=== PATIENT | male | born 1960 | race Caucasian/White ===

== ENCOUNTER → 2019-03-20 | Outpatient (CLI) | payer OTHER ==
[~2019-03-20] MED LIST: MULTCAP PO; MULTCHW14 PO; TADA5TAB PO
--- NOTE | 2019-03-20 13:54 | ECGEPIP ---
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
== END ==
LOC: M EKG 09:55
PROVIDERS: ATTEND Anesthesiology
DX: Z01.818 Encounter for other preprocedural examination (principal); F17.210 Nicotine dependence, cigarettes, uncomplicated; F17.290 Nicotine dependence, other tobacco product, uncomplicated

== ENCOUNTER 2019-03-25 08:52 | Day surgery (SDC) | payer OTHER ==
[~2019-03-25] VITALS: Ht 182.9 cm; Wt 90.7 kg
[~2019-03-25 08:52] MED LIST changes: +LACRILUBE (AKWA TEARS) OPHTH OINT 3.5 GM As Ordered ONE; +LIDOCAINE 2% INJ 100 MG/5 ML SDV (FOR ANES.) As Ordered ONE; +LR 1,000 ML IV ONE; +MIDAZOLAM INJ 2 MG/2 ML VIAL (J2250) As Ordered ONE; +ONDANSETRON 4MG/2ML VIAL (J2405) As Ordered ONE; +PROPOFOL 200 MG/20 ML VIAL As Ordered ONE; +ROCURONIUM BROMIDE 50 MG/5 ML VIAL As Ordered ONE; +ceFAZolin SOD 2 GM in IV 1 EA IV ONE; +dexameTHASONE 4 MG/ML 1ML VIAL (J1100) As Ordered ONE; +fentaNYL 250 MCG/5 ML INJECTION (J3010) As Ordered ONE
[2019-03-25] MEDS ORDERED: BUPIVACAINE/EPIN 0.25% 30 ML VIAL As Ordered ONE (11:32)
[2019-03-25] MEDS ORDERED: ROCURONIUM BROMIDE 50 MG/5 ML VIAL As Ordered ONE (12:15)
[2019-03-25] MEDS ORDERED: ACETAMINOPHEN 1000MG 100ML IV BTL (OFIRMEV) (J0131 PER 10MG) As Ordered ONE (12:15)
[2019-03-25] MEDS ORDERED: ePHEDrine SULFATE 25 MG/5 ML(5MG/ML) SYRINGE As Ordered ONE (12:25)
[2019-03-25] MEDS ORDERED: SUGAMMADEX SODIUM 500 MG/5 ML VIAL (BRIDION) As Ordered ONE (12:38)
[2019-03-25] MEDS ORDERED: PERCOCET 5MG/325MG TAB PO PRN (14:30)
[2019-03-25] MEDS ORDERED: LR 1,000 ML IV SCH (14:30)
[2019-03-25] MEDS ORDERED: fentaNYL 100 MCG/2 ML INJECTION (J3010) IV PRN (14:30)
[2019-03-25] MEDS ORDERED: ONDANSETRON 4MG/2ML VIAL (J2405) IV PRN (14:30)
[2019-03-25] MEDS ORDERED: NORCO, ANEXSIA 5/325MG TABLET (HYDROcodone/ACETAMINOPHEN) PO PRN (15:31)
[2019-03-25 16:00] VITALS: BP 127/68
--- NOTE | 2019-03-26 08:11 | RO ---
DATE OF PROCEDURE: 03/25/2019 PREOPERATIVE DIAGNOSIS: Bilateral inguinal hernias. POSTOPERATIVE DIAGNOSIS: Bilateral inguinal hernias. PROCEDURE: Robotic bilateral inguinal repair. SURGEON: Dr. Chester [place] OBSERVER: Earnestine Cooper NP ANESTHESIA: General. ESTIMATED BLOOD LOSS: 5. COMPLICATIONS: None. INDICATIONS FOR PROCEDURE: The patient is a 58-year-old male who presents with right inguinal pain and found to have a large right inguinal hernia as well as a small left inguinal hernia. Recommendation to proceed with robotic repair. Risks and benefits of the procedure not limited but including bleeding, infection, hernia formation, hernia recurrence, damage to surrounding structure, need for further surgery were discussed in detail with the patient. Informed consent was obtained and procedure was planned. DESCRIPTION OF PROCEDURE: The patient was brought back to operating room #7. After sufficient sedation, the abdomen was sterilely prepped and draped. Next, a time-out was done to confirm proper patient and proper procedure. Following that an 8 mm incision was made in the left upper quadrant, Veress needle was inserted and the abdomen was insufflated to 50 mmHg. Next, the Veress needle was removed and an 8 mm Optiview port was used to gain access to the abdomen. Once the abdomen was entered, two more 8 mm ports were placed across the middle of the abdomen, one in the midline and one in the right midabdomen. The robot was then docked to the ports. Then starting in the right groin, the peritoneum was incised with a curved incision overtop of an obvious indirect hernia defect. Preperitoneal space was then dissected free. There was a very large and long indirect hernia sac as well as a couple cord lipomas attached to it. Once all of these were completely reduced and the preperitoneal space was dissected free medially, posteriorly and laterally the same process was then done on the left side. On the left, there was sigmoid colon adhered overtop of the left inguinal area. This was carefully dissected free. The peritoneum was then opened again with another curved incision. No obvious defects were seen on the outside. However, after entering the preperitoneal space there was a couple of very large cord lipomas that were likely the result of his hernia on that side. Once these were all completely reduced and the preperitoneal space was dissected, a Bard 3DMax light medium mesh was placed into the left and right preperitoneal space. #2-0 Vicryl suture was then used to suture the mesh to the pubic symphysis on both sides. Next, #2-0 V-Loc was used to close the peritoneum first on the right side followed by the left. Once this was completed, the three needles were all retained out of the abdomen along with the cord lipoma on the right side. The abdomen was then desufflated. Skin incisions closed with #4-0 Vicryl subcuticular sutures. The abdomen was cleaned and dried. Steri-Strips, 4 x 4 and tape were applied, thus ending procedure.
== END 2019-03-25 16:05 | disposition home or self-care (01) ==
LOC: M SDC 08:52
PROVIDERS: ATTEND Surgery
DX: K40.20 Bilateral inguinal hernia, without obstruction or gangrene, not specified as recurrent (principal); Z88.2 Allergy status to sulfonamides; Z79.899 Other long term (current) drug therapy; F17.290 Nicotine dependence, other tobacco product, uncomplicated
CPT/HCPCS: 49650; C1781; J0131; J0690; J1100; J2250; J2405; J3010

== ENCOUNTER 2019-03-28 19:04 | Day surgery (SDC) | payer OTHER ==
[~2019-03-28] VITALS: Ht 182.9 cm; Wt 90.9 kg
[~2019-03-28 19:04] MED LIST changes: -LACRILUBE (AKWA TEARS) OPHTH OINT 3.5 GM As Ordered ONE; -LIDOCAINE 2% INJ 100 MG/5 ML SDV (FOR ANES.) As Ordered ONE; -LR 1,000 ML IV ONE; -MIDAZOLAM INJ 2 MG/2 ML VIAL (J2250) As Ordered ONE; -ONDANSETRON 4MG/2ML VIAL (J2405) As Ordered ONE; -PROPOFOL 200 MG/20 ML VIAL As Ordered ONE; -ROCURONIUM BROMIDE 50 MG/5 ML VIAL As Ordered ONE; -ceFAZolin SOD 2 GM in IV 1 EA IV ONE; -dexameTHASONE 4 MG/ML 1ML VIAL (J1100) As Ordered ONE; -fentaNYL 250 MCG/5 ML INJECTION (J3010) As Ordered ONE
[2019-03-28] MEDS ORDERED: HYDR-3713 PO (19:10)
[2019-03-28 20:22] LABS: BASO # 0.1 10^3/uL (0.0-0.2); BASO % 0.3 % (0.0-1.0); EOS % 0.3 % (0.0-3.0); HEMOGLOBIN 15.2 g/dl (13.5-17.5); LYMPH # 0.6 10^3/uL (1.5-5.0); LYMPH % 3.9 % (24.0-44.0); MEAN CORPUSCULAR HEMOGLOBIN 31.2 pg (27.0-33.0); MEAN CORPUSCULAR HGB CONC 34.5 g/dl (32.0-36.5); MEAN CORPUSCULAR VOLUME 90.3 fl (80.0-96.0); MONO # 0.9 10^3/uL (0.0-0.8); MONO % 6.1 % (0.0-5.0); NEUTROPHILS # 13.7 10^3/uL (1.5-8.5); NEUTROPHILS % 88.9 % (36.0-66.0); PLATELET COUNT, AUTOMATED 236 10^3/uL (150-450); RED BLOOD COUNT 4.87 10^6/uL (4.30-6.10); WHITE BLOOD COUNT 15.4 10^3/uL (4.0-10.0)
[2019-03-28 21:10] LABS: ALBUMIN 3.4 GM/DL (3.2-5.2); ALT/SGPT 32 U/L (12-78); BILIRUBIN,DIRECT 0.3 MG/DL (0.0-0.2); BILIRUBIN,TOTAL 1.2 MG/DL (0.2-1.0); BLOOD UREA NITROGEN 17 MG/DL (7-18); CALCIUM LEVEL 8.6 MG/DL (8.5-10.1); CARBON DIOXIDE LEVEL 26 MEQ/L (21-32); CHLORIDE LEVEL 103 MEQ/L (98-107); CREATININE FOR GFR 0.99 MG/DL (0.70-1.30); GLOMERULAR FILTRATION RATE > 60.0 (>56); GLUCOSE, FASTING 129 MG/DL (70-100); LIPASE 54 U/L (73-393); POTASSIUM SERUM 3.9 MEQ/L (3.5-5.1); SODIUM LEVEL 136 MEQ/L (136-145); TOTAL PROTEIN 6.3 GM/DL (6.4-8.2)
[2019-03-28] MEDS ORDERED: ISOVUE-370 76% 100ML VIAL (Q9967) As Ordered ONE (21:13)
--- NOTE | 2019-03-28 21:49 | REPVR ---
PROCEDURE INFORMATION: Exam: CT Abdomen And Pelvis With Contrast Exam date and time: 03/28/2019 9:19 PM Age: 58 years old Clinical history: Abdominal pain; Generalized; Prior surgery; Surgery date: 3-7 days post-operative; Surgery type: Bilat inguinal hernia repair; Additional info: Abd pain, 4 days S/P bilat inguinal hernia repair TECHNIQUE: Imaging protocol: Computed tomography of the abdomen and pelvis with intravenous contrast. Radiation optimization: All CT scans at this facility use at least one of these dose optimization techniques: automated exposure control; mA and/or kV adjustment per patient size (includes targeted exams where dose is matched to clinical indication); or iterative reconstruction. Contrast material: ISOVUE 370; Contrast volume: 100 ml; Contrast route: IV; COMPARISON: CT ABD PELVIS WITH CONTRAST 03/05/2015 10:39 PM FINDINGS: Liver: Small cysts in the liver. Gallbladder and bile ducts: There has been prior cholecystectomy. Pancreas: Normal. No ductal dilation. Spleen: Normal. No splenomegaly. Adrenals: Normal. No mass. Kidneys and ureters: Nonobstructing calyceal stone in the left kidney. No hydronephrosis. Kidneys are otherwise unremarkable. Stomach and bowel: A 2.5 cm cyst in the right lower quadrant near the cecum is unchanged.There is mild colonic diverticulosis without evidence of diverticulitis. The small bowel is unremarkable. Appendix: The appendix is mildly thickwalled with surrounding periappendiceal edema. Appendix is mildly dilated with fluid measuring 14 mm. Intraperitoneal space: No drainable fluid collection or abscess. Or loss soft tissue stranding in the right lower quadrant. Vasculature: Unremarkable. No abdominal aortic aneurysm. Lymph nodes: Unremarkable. No enlarged lymph nodes. Bladder: Unremarkable as visualized. Reproductive: Some air extends along the spermatic cord into the scrotum. Small right hydrocele. Small bilateral varicoceles. Bones/joints: Unremarkable. No acute fracture. Soft tissues: Small foci of subcutaneous emphysema are noted in the anterior abdominal wall, possibly related to recent inguinal hernia repair. No recurrent inguinal hernia is seen. IMPRESSION: 1. Acute appendicitis. No abscess or perforation. 2. Colonic diverticulosis without evidence of diverticulitis. 3. Recent hernia repair. No recurrent hernia is seen. 4. Bilateral varicoceles and small right hydrocele. COMMENT: Consistent with the [employer]'s Incidental Findings Committee Report (J Am Girish Radiol 2010): Unless the patient's specific circumstances suggest otherwise, any liver lesion 0.5 cm or less, any cystic kidney lesion less than 1.0 cm, and/or any adrenal lesion 1.0 cm or less not otherwise characterized in this report as possessing suspicious or indeterminate imaging features is/are highly likely to be benign and do not require follow-up imaging or biopsy. Electronically signed by: Ray Palma On 03/28/2019 21:49:17 PM
[2019-03-28] MEDS ORDERED: PIPERACILLIN/TAZOBACTAM SOD 3.375 GM in D5W MINI-BAG PLUS 50 ML IV STA (22:06)
[2019-03-28] MEDS ORDERED: NS 1,000 ML IV ONE (22:15)
[2019-03-28] MEDS ORDERED: IBUP-1764 PO (22:41)
[2019-03-28] MEDS ORDERED: MULTCHW12 PO (22:41)
[2019-03-28] MEDS ORDERED: LIDOCAINE 2% INJ 100 MG/5 ML SDV (FOR ANES.) As Ordered ONE (22:59)
[2019-03-28] MEDS ORDERED: PROPOFOL 200 MG/20 ML VIAL As Ordered ONE (22:59)
[2019-03-28] MEDS ORDERED: ROCURONIUM BROMIDE 50 MG/5 ML VIAL As Ordered ONE (22:59)
[2019-03-28] MEDS ORDERED: MIDAZOLAM INJ 2 MG/2 ML VIAL (J2250) As Ordered ONE (23:01)
[2019-03-28] MEDS ORDERED: fentaNYL 250 MCG/5 ML INJECTION (J3010) As Ordered ONE (23:01)
[2019-03-28] MEDS ORDERED: dexameTHASONE 4 MG/ML 1ML VIAL (J1100) As Ordered ONE (23:03)
[2019-03-28] MEDS ORDERED: ONDANSETRON 4MG/2ML VIAL (J2405) As Ordered ONE (23:03)
[2019-03-28] MEDS ORDERED: BUPIVACAINE/EPIN 0.25% 30 ML VIAL As Ordered ONE (23:20)
[2019-03-29] VITALS (10 sets, daily range): BP systolic 120–142; BP diastolic 59–81; O2SAT 96–97
[2019-03-29] MEDS ORDERED: ACETAMINOPHEN 1000MG 100ML IV BTL (OFIRMEV) (J0131 PER 10MG) As Ordered ONE (00:13)
[2019-03-29] MEDS ORDERED: KETOROLAC 60 MG/2 ML VIAL (J1885) As Ordered ONE (00:18)
[2019-03-29] MEDS ORDERED: SUGAMMADEX SODIUM 500 MG/5 ML VIAL (BRIDION) As Ordered ONE (00:18)
[2019-03-29] MEDS ORDERED: NS 1,000 ML IV SCH (00:52)
[2019-03-29] MEDS ORDERED: MORPHINE 2 MG/ML 1ML VIAL (J2270) IV PRN (01:00)
[2019-03-29] MEDS ORDERED: NORCO, ANEXSIA 5/325MG TABLET (HYDROcodone/ACETAMINOPHEN) PO PRN ×2 (01:00)
[2019-03-29] MEDS ORDERED: oxyCODONE 5MG TAB PO PRN (02:00)
[2019-03-29] MEDS ORDERED: ONDANSETRON 4MG/2ML VIAL (J2405) IV PRN (02:00)
[2019-03-29] MEDS ORDERED: LR 1,000 ML IV SCH (02:00)
[2019-03-29] MEDS ORDERED: fentaNYL 100 MCG/2 ML INJECTION (J3010) IV PRN (02:00)
[2019-03-29] MEDS: PIPERACILLIN/TAZOBACTAM SOD 3.375 GM in D5W MINI-BAG PLUS 50 ML IV SCH ×2 (06:20→11:27)
[2019-03-29] MEDS: KETOROLAC 30 MG/ML VIAL (J1885) IV SCH ×2 (06:20→11:27)
--- NOTE | 2019-03-29 13:10 | ECGEPIP ---
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
[2019-03-29] MEDS ORDERED: LEVA1TAB2 PO (14:27)
--- NOTE | 2019-03-29 15:16 | RO ---
DATE OF PROCEDURE: 03/28/2019 PREOPERATIVE DIAGNOSIS: Acute appendicitis. POSTOPERATIVE DIAGNOSIS: Acute appendicitis. PROCEDURE: Laparoscopic appendectomy. SURGEON: Kp Santiago MD PATROL MAN: ANESTHESIA: General endotracheal anesthesia. ESTIMATED BLOOD LOSS: Minimal. FLUIDS: Crystalloid. BRIEF PROCEDURE SUMMARY: The patient was brought to the operating room and was given general anesthesia. After adequate anesthesia and preoperative antibiotics were given, the patient was prepped and draped in usual sterile fashion. Next, a supraumbilical incision was made with skin knife. Blunt dissection was carried down to fascia. Fascia was entered with a Veress needle, insufflated to 15 mm of pressure. A 12 mm trocar was placed at this time and under direct visualization suprapubic and left lower quadrant 5 mm trocars were placed. The patient is 4 days out from a robotic bilateral inguinal hernia repair and there was great deal of inflammatory changes within the hernia/peritoneum but I did not see any purulent discharge from this area. However, at the appendix itself it was quite inflamed and appearing to start becoming necrotic. There was not a lot of purulent fluid in the belly. I did not see any abscess or perforation, and no inflammation present associated with the appendix other than just some adhesions to the omentum in this area. These were taken down bluntly and then the mesentery of the appendix was taken with a Harmonic scalpel down to level of cecal wall. The cecal wall was transected using a MACEY stapler, placed in an Endo Catch bag and brought out through the umbilicus. The right lower quadrant was copiously irrigated until clear and after two bags of irrigation of the abdomen was quite clear. No evidence of bleeding. No evidence of infection. No evidence of drainage. The trocars were all removed under direct visualization. There was some oozing from the rectus muscle along the umbilicus, which was controlled with a [id number] #0 Vicryl to close the fascia and to control the minimal oozing present. All wound sites were closed with #4-0 Vicryl. Steri-Strips and a dry sterile dressing was applied. The patient was awakened, extubated, brought to the recovery room awake, alert, hemodynamically stable. Sponge and needle counts correct times two.
--- NOTE | 2019-03-29 15:19 | IPN ---
DATE: 03/29/2019 The patient is postop day #1 from a laparoscopic appendectomy. He seems to be doing well overall. Has been afebrile and overall his pain has resolved. He was started on a clear liquid diet, advanced to a regular diet and overall is tolerating a regular diet. He is not complaining of any pain at this time and would like to be discharged home. IMPRESSION/PLAN: The patient is status post appendectomy, seems to be healing well. His incisions are clean, dry, healing without any erythema, drainage or discharge. His abdomen is soft and otherwise seems to be making some good normal progress. Typically I would not send an individual home on antibiotics, given the resolution of his symptoms and improvement however with the mesh that he had placed recently, I do feel that it is very reasonable to have him on some antibiotics for the next few days. He will followup with Dr. Chester next Monday, sooner if there is any question, concerns, fevers, chills, increasing pain, etc.
== END 2019-03-29 17:00 | disposition home or self-care (01) ==
LOC: M ED 19:04 → M SDC 19:05 → M MSPAV 03-29 01:39 → M SDC 03-29 17:00
PROVIDERS: ATTEND Surgery
DX: K35.890 Other acute appendicitis without perforation or gangrene (principal); K21.9 Gastro-esophageal reflux disease without esophagitis
CPT/HCPCS: 44970; 74177; 80048; 80076; 81001; 83690; 85025; 88304; 93005; 96361; 96365; 96366; 96375; 96376; 99284; J0131; J1100; J1885; J2250; J2405; J2543; J3010; Q9967

== ENCOUNTER → 2020-08-14 | Outpatient (CLI) | payer SELFPAY ==
[~2020-08-14] MED LIST changes: +HYDR-3713 PO; +IBUP-1764 PO; +LEVA1TAB2 PO; +MULTCHW12 PO
== END ==
LOC: M LABSMTC 09:59
PROVIDERS: ATTEND Pediatrics
DX: Z11.52 Encounter for screening for COVID-19 (principal)

== ENCOUNTER → 2021-01-16 | Outpatient (CLI) | payer BC ==
[2021-01-16 09:43] LABS: BASO # 0.1 10^3/uL (0.0-0.2); BASO % 0.7 % (0.0-1.0); EOS # 0.5 10^3/uL (0.0-0.5); EOS % 6.5 % (0.0-3.0); HEMATOCRIT 46.5 % (42.0-52.0); HEMOGLOBIN 15.9 g/dl (13.5-17.5); LYMPH # 1.9 10^3/uL (1.5-5.0); LYMPH % 23.5 % (24.0-44.0); MEAN CORPUSCULAR HEMOGLOBIN 31.2 pg (27.0-33.0); MEAN CORPUSCULAR HGB CONC 34.2 g/dl (32.0-36.5); MEAN CORPUSCULAR VOLUME 91.2 fl (80.0-96.0); MONO # 0.5 10^3/uL (0.0-0.8); MONO % 6.4 % (2.0-8.0); NEUTROPHILS # 5.2 10^3/uL (1.5-8.5); NEUTROPHILS % 62.7 % (36.0-66.0); PLATELET COUNT, AUTOMATED 271 10^3/uL (150-450); WHITE BLOOD COUNT 8.3 10^3/uL (4.0-10.0)
[2021-01-16 10:11] LABS: ALBUMIN 3.7 GM/DL (3.2-5.2); ALT/SGPT 28 U/L (12-78); BILIRUBIN,TOTAL 1.1 MG/DL (0.2-1.0); BLOOD UREA NITROGEN 21 MG/DL (7-18); CARBON DIOXIDE LEVEL 30 MEQ/L (21-32); CHLORIDE LEVEL 106 MEQ/L (98-107); CHOLESTEROL LEVEL 184 MG/DL (<200); CREATININE FOR GFR 1.05 MG/DL (0.70-1.30); GLOMERULAR FILTRATION RATE > 60.0 (>56); GLUCOSE, FASTING 111 MG/DL (70-100); HDL CHOLESTEROL 46 MG/DL (>40); LDL CHOLESTEROL 119 MG/DL (<100); NON-HDL-C 138 MG/DL; POTASSIUM SERUM 4.6 MEQ/L (3.5-5.1); SODIUM LEVEL 138 MEQ/L (136-145); TOTAL PROTEIN 6.4 GM/DL (6.4-8.2); TRIGLYCERIDES LEVEL 93 MG/DL (<150)
[2021-01-16 10:12] LABS: HEMOGLOBIN A1c 6.3 %
== END ==
LOC: M LAB 08:27
PROVIDERS: ATTEND Physician Assistant Medical
DX: I10 Essential (primary) hypertension (principal)

== ENCOUNTER → 2023-03-20 | Outpatient (CLI) | payer BC | LOC: M WHC 08:01 | PROVIDERS: ATTEND Nurse Practitioner Adult Health | DX: R09.89 Other specified symptoms and signs involving the circulatory and respiratory systems (principal); Z82.49 Family history of ischemic heart disease and other diseases of the circulatory system ==

== ENCOUNTER → 2024-04-29 | Outpatient (REF) | payer BC ==
[~2024-04-29] MED LIST changes: -TADA5TAB PO; +TADA5TAB94 PO
[2024-04-29 18:13] LABS: APPEARANCE, URINE CLEAR (CLEAR); BACTERIA, URINE AUTO NEGATIVE (NEGATIVE); BILIRUBIN, URINE AUTO NEGATIVE (NEGATIVE); BLOOD, URINE BLOOD NEGATIVE (NEGATIVE); COLOR, URINE STRAW (YELLOW); GLUCOSE, URINE (UA) AUTO 3+ mg/dL (NEGATIVE); KETONE, URINE AUTO NEGATIVE (NEGATIVE); LEUKOCYTE ESTERASE, URINE AUTO NEGATIVE (NEGATIVE); NITRITE, URINE AUTO NEGATIVE (NEGATIVE); PROTEIN, URINE AUTO NEGATIVE (NEGATIVE); RBC, URINE AUTO 0 /HPF (0-3); SPECIFIC GRAVITY URINE AUTO 1.015 (1.002-1.035); SQUAMOUS EPITHELIAL CELL UR AU 0 /HPF (0-6); UROBILINOGEN, URINE AUTO 0.2 mg/dL (0.0-2.0); WBC, URINE AUTO 0 /HPF (0-3)
== END ==
LOC: M SMT 17:12
PROVIDERS: ATTEND Physician Assistant
DX: R35.0 Frequency of micturition (principal)

== ENCOUNTER → 2024-07-24 | Outpatient (CLI) | payer BC | LOC: M RAD 11:26 | PROVIDERS: ATTEND Urology | DX: R33.9 Retention of urine, unspecified (principal) ==

== ENCOUNTER → 2024-12-30 | Outpatient (CLI) | payer OTHER ==
[~2024-12-30] MED LIST changes: +TADA5TAB2 PO; -TADA5TAB94 PO
== END ==
LOC: M RAD 11-25 13:44
PROVIDERS: ATTEND Internal Medicine Nephrology
DX: N13.8 Other obstructive and reflux uropathy (principal)
CPT/HCPCS: 78707; A9562

== ENCOUNTER → 2025-02-13 | Outpatient (CLI) | payer OTHER | LOC: M RAD 15:35 | PROVIDERS: ATTEND Urology | DX: R33.9 Retention of urine, unspecified (principal); N13.30 Unspecified hydronephrosis; N13.4 Hydroureter ==

== ENCOUNTER → 2025-04-11 | Outpatient (REF) | payer OTHER ==
[2025-04-11 17:50] LABS: IRON (FE) 14.0 UG/DL (65-175); PERCENT SATURATION 7.9 % (19.7-50.0)
== END ==
LOC: M LAB REF 16:49
PROVIDERS: ATTEND Internal Medicine Nephrology
DX: D50.9 Iron deficiency anemia, unspecified (principal)